=== PATIENT | female | born 1950 | race Asian ===

== ENCOUNTER → 2017-01-26 | Day surgery (SDC) | payer OTHER ==
[~2017-01-26] VITALS: Ht 157.5 cm; Wt 116.1 kg
[2017-01-26] VITALS (12 sets, daily range): BP systolic 119–147; BP diastolic 55–74
[~2017-01-26] MED LIST: AMLODIPINE BESYL5 MG ORAL; ASPIR 8181 MG ORAL; ATORVASTATIN CA40 MG ORAL; Akten 3.5% 1ml Btl ONE; BSS 15ml BTL ONE; BSS 500ml btl ONE; COUMADIN2.5 MG ORAL; Dexamethasone 4mg/ml vial ONE; Diclofenac Sod 0.1% Op Soln ONE; EPINEPHrine 1mg/1ml Amp ONE; FUROSEMIDE40 MG ORAL; Gatifloxacin Opth Solution 0.5% ONE; Hydromorphone 0.5mg/0.5ml inj IVP PRN; LEVEMIR FL100 UNIT/1 SUBQ; Lidocaine 1% MPF 10mg/ml 5ml ONE; Midazolam 2mg/2ml Inj ONE; NOVOLOG100 UNIT/3 SUBQ; NS Irrig 1000ml ONE; Phenylephrine 2.5% Op Soln ONE; Povidone-Iodine 5% opth solution ONE; Sodium Hyaluronate 14 mg/ml 0.85ml ONE; Sterile Water Irrig 1000ml IRRIG ONE; Tobradex Opth Susp 2.5ml ONE; Tropicamide 1% Opth Soln ONE; VELTASSA16.8 GM PO; VICTOZA 3-0.6 MG/0.1 SQ; VITAMIN D22000 UNIT PO; fentaNYL 100 mcg/2 mL IV ONE
[2017-01-26] MEDS: Diclofenac Sod 0.1% Op Soln LEFT EYE SCH ×3 (07:16→07:47)
[2017-01-26] MEDS: Tobradex Opth Susp 2.5ml LEFT EYE SCH ×3 (07:16→07:47)
[2017-01-26] MEDS: Tropicamide 1% Opth Soln LEFT EYE SCH ×3 (07:16→07:47)
[2017-01-26] MEDS: Akten 3.5% 1ml Btl LEFT EYE SCH ×3 (07:16→07:47)
[2017-01-26] MEDS: Phenylephrine 2.5% Op Soln LEFT EYE SCH ×3 (07:16→07:47)
[2017-01-26] MEDS: Gatifloxacin Opth Solution 0.5% LEFT EYE SCH ×3 (07:17→07:47)
--- NOTE | 2017-01-26 07:40 | Pre-Procedure Note/Attestation ---
Pre-Procedure Note/Attestation Complete Prior to Procedure Planned Procedure: left Procedure Narrative: cataract extraction with implant left eye Indications for Procedure Pre-Operative Diagnosis: cataract left eye Attestation I attest that I discussed the nature of the procedure; its benefits; risks and complications; and alternatives (and the risks and benefits of such alternatives ), prior to the procedure, with the patient (or the patient's legal billing customer service representative). I attest that, if there was a reasonable possibility of needing a blood transfusion, the patient (or the patient's legal billing customer service representative) was given the [facility] standardized written summary, pursuant to the [place] Blood Safety Act ([place] Health and Safety Code # 1645, as amended). I attest that I re-evaluated the patient just prior to the surgery and that there has been no change in the patient's H&P, except as documented below: SERVANDO MEHTA Jan 26, 2017 07:40
--- NOTE | 2017-01-26 08:38 | Anethesia Preoperative Eval ---
Anesthesia Pre-op PMH/ROS General Date of Evaluation: Jan 26, 2017 Time of Evaluation: 08:15 Anesthesiologist: FORREST ASA Score: ASA 3 Mallampati Score Class I : Soft palate, uvula, fauces, pillars visible Class II: Soft palate, uvula, fauces visible Class III: Soft palate, base of uvula visible Class IV: Only hard plate visible Mallampati Classification: Class II Surgeon: JANINE Diagnosis: CATARACT L EYE Surgical Procedure: REMOOVAL CATARACT L EYE Anesthesia History: none Family History: no anesthesia problems Allergies: Coded Allergies: No Known Allergies (Unverified , 01/25/17) Medications: see eMAR Past Medical History Cardiovascular: Reports: HTN Pulmonary: Denies: COPD, ELISSA, asthma, other Gastrointestinal/Genitourinary: Reports: other - CRD Neurologic/Psychiatric: Denies: CVA, TIA, dementia, depression/anxiety, other Endocrine: Reports: DM HEENT: Reports: cataract (L) Hematology/Immune: Denies: DVT, anemia, bleeding disorder, other Musculoskeletal/Integumentary: Denies: DDD, DJD, OA, RA, edema, other Other: obesity Anesthesia Pre-op Phys. Exam Physician Exam Last Vital Signs Date Time Temp Pulse Resp B/P Pulse Ox O2 Delivery O2 Flow Rate FiO2 01/26/17 07:24 97.8 90 20 147/74 100 Room Air Constitutional: NAD Neurologic: CN 2-12 intact Cardiovascular: RRR Respiratory: CTA Gastrointestinal: S/NT/ND Airway Exam Mallampati Score: Class II MO: full ROM: full Dentures: lower, upper Anesthesia Pre-op A/P Labs Chemistry Test 01/26/17 07:40 Potassium Level 5.0 mEQ/L (3.4-4.9) SRINIVASA PAZ M.D. Jan 26, 2017 08:38
--- NOTE | 2017-01-26 08:43 | Immediate Post-Op Evaluation ---
Immediate Post-Op Evalulation Immediate Post-Op Evalulation Procedure: CATARACT REMOVAL LENS IMPLANT L Date of Evaluation: Jan 26, 2017 IV Fluids: 450 Blood Products: 0 Estimated Blood Loss: 0 Urinary Output: 0 Blood Pressure Systolic: 124 Blood Pressure Diastolic: 68 Pulse Rate: 86 Respiratory Rate: 19 O2 Sat by Pulse Oximetry: 98 Temperature (Fahrenheit): 99 Pain Score (1-10): 0 Nausea: No Vomiting: No Patient Status: awake, patent, none Hydration Status: adequate Given Within 1 Hr of Incision: SRINIVASA Kumari M.D. Jan 26, 2017 08:43
--- NOTE | 2017-01-26 08:44 | 48 Hour Post Anesthesia Eval ---
Post Anesthesia Evaluation Procedure: CATARACT REMOVAL LENS IMPLANT L Date of Evaluation: Jan 26, 2017 Time of Evaluation: 12:00 Blood Pressure Systolic: 143 Pulse Rate: 78 Respiratory Rate: 20 Temperature (Fahrenheit): 98 O2 Sat by Pulse Oximetry: 98 Airway: patent Nausea: No Vomiting: No Pain Intensity: 1 Hydration Status: adequate Cardiopulmonary Status: WNL Mental Status/LOC: patient returned to baseline Post-Anesthesia Complications: 0 Follow-up care needed: ready to discharge SRINIVASA CLAYTON M.D. Jan 26, 2017 08:44
--- NOTE | 2017-01-26 08:55 | Brief Operative Note ---
Immediate Post Operative Note Operative Note Pre-op Diagnosis: cataract left eye Procedure: phacoemulsification of cataract with implant left eye Post-op Diagnosis: same as pre-op Surgeon: servando carmichael Vending Technician: none Anesthesiologist: ana meyer Anesthesia: MAC Specimen: none Complications: none Condition: stable Estimated Blood Loss: none Drains: none Implant(s) used?: Yes SERVANDO CARMICHAEL Jan 26, 2017 08:55
--- NOTE | 2017-01-26 23:09 | Operative Note - Dictated ---
DATE OF OPERATION: 01/26/2017 PREOPERATIVE DIAGNOSIS: Cataract, left eye. POSTOPERATIVE DIAGNOSIS: Cataract, left eye. PROCEDURE: Phacoemulsification of cataract, left eye with placement of posterior chamber intraocular lens. SURGEON: Lex Perez M.D. ([facility] [place]) WRAPPER SORTER: None. ANESTHESIA: MAC/topical. ANESTHESIOLOGIST: Dr. Holland Unger. INDICTION FOR PROCEDURE: Poor vision, left eye. DESCRIPTION OF FINDINGS: Nuclear sclerotic and cortical cataract, left eye. DESCRIPTION OF PROCEDURE: The patient received a topical anesthetic block consisting of 3.5% Akten eye drops. The eye was then prepped and draped in usual manner. A lid speculum was placed. An operating Zeiss microscope was positioned. The temporal corneal groove was made with the chika blade. A SuperSharp blade made a stab incision at the 6 o'clock position. A 0.1 mL of 1% nonpreserved intracameral lidocaine was injected. Healon was instilled into the anterior chamber and a 2.5/2.8 mm trapezoidal chika blade was used to complete the temporal corneal wound. A cystotome was used to create an anterior capsular flap. Utrata forceps were used to complete the capsulorrhexis. BSS on a cannula was used to hydrodissect the nucleus. The lens nucleus was phacoemulsified in a phaco-fracture technique. Remaining cortical material was removed with the I/A and the posterior capsule polished with the I/A on Cap vac. Healon was reinstilled into the capsular bag and anterior chamber, and an Valencia foldable one-piece posterior chamber intraocular lens, model ZCB00, power 17.5 diopter, serial number [id number] was placed in the injector. The lens was put into the capsular bag. The I/A tip was used to remove the Healon and position the lens. The wound edge was hydrated with BSS and a blunt-tipped cannula. The wound was checked and found to be watertight. The lid speculum was removed and a drop of TobraDex and Zymaxid was placed. A clear plastic shield was taped over the eye. The patient tolerated the procedure well and left the operating room in good condition. Lex Perez M.D. ([facility]) DR: KAYDEN JOB#: [id number] CC:
== END | disposition home or self-care (01) ==
LOC: SUR 06:25
DX: H25.12 Age-related nuclear cataract, left eye (principal); H25.012 Cortical age-related cataract, left eye; E11.22 Type 2 diabetes mellitus with diabetic chronic kidney disease; I12.9 Hypertensive chronic kidney disease with stage 1 through stage 4 chronic kidney disease, or unspecified chronic kidney disease; N18.4 Chronic kidney disease, stage 4 (severe); Z79.4 Long term (current) use of insulin; E11.42 Type 2 diabetes mellitus with diabetic polyneuropathy; E11.319 Type 2 diabetes mellitus with unspecified diabetic retinopathy without macular edema; E78.5 Hyperlipidemia, unspecified; E66.01 Morbid (severe) obesity due to excess calories; Z68.43 Body mass index [BMI] 50.0-59.9, adult; M54.40 Lumbago with sciatica, unspecified side; R60.9 Edema, unspecified; Z85.3 Personal history of malignant neoplasm of breast; Z86.010 Personal history of colon polyps
CPT/HCPCS: 36415; 66984; 82962; 84132; J0171; J1100; J2250; J2405; J3010; V2632; 94003; 94150

== ENCOUNTER 2017-03-02 06:03 | Day surgery (SDC) | payer OTHER ==
[~2017-03-02] VITALS: Ht 157.5 cm; Wt 113.4 kg
[2017-03-02] VITALS (9 sets, daily range): BP systolic 93–157; BP diastolic 47–76
[~2017-03-02 06:03] MED LIST changes: -Akten 3.5% 1ml Btl ONE; -BSS 15ml BTL ONE; -BSS 500ml btl ONE; -Dexamethasone 4mg/ml vial ONE; -Diclofenac Sod 0.1% Op Soln ONE; -EPINEPHrine 1mg/1ml Amp ONE; -Gatifloxacin Opth Solution 0.5% ONE; -Hydromorphone 0.5mg/0.5ml inj IVP PRN; -Lidocaine 1% MPF 10mg/ml 5ml ONE; -Midazolam 2mg/2ml Inj ONE; -NS Irrig 1000ml ONE; -Phenylephrine 2.5% Op Soln ONE; -Povidone-Iodine 5% opth solution ONE; -Sodium Hyaluronate 14 mg/ml 0.85ml ONE; -Sterile Water Irrig 1000ml IRRIG ONE; -Tobradex Opth Susp 2.5ml ONE; -Tropicamide 1% Opth Soln ONE; -fentaNYL 100 mcg/2 mL IV ONE
[2017-03-02] MEDS ORDERED: Gatifloxacin Opth Solution 0.5% ONE (06:23)
[2017-03-02] MEDS ORDERED: Phenylephrine 2.5% Op Soln ONE (06:23)
[2017-03-02] MEDS ORDERED: Tobradex Opth Susp 2.5ml ONE (06:23)
[2017-03-02] MEDS ORDERED: Diclofenac Sod 0.1% Op Soln ONE (06:23)
[2017-03-02] MEDS ORDERED: Akten 3.5% 1ml Btl ONE (06:23)
[2017-03-02] MEDS ORDERED: Tropicamide 1% Opth Soln ONE (06:24)
[2017-03-02] MEDS: Diclofenac Sod 0.1% Op Soln RIGHT EYE SCH ×3 (06:36→06:56)
[2017-03-02] MEDS: Akten 3.5% 1ml Btl RIGHT EYE SCH ×3 (06:36→06:56)
[2017-03-02] MEDS: Tobradex Opth Susp 2.5ml RIGHT EYE SCH ×3 (06:37→06:56)
[2017-03-02] MEDS: Tropicamide 1% Opth Soln RIGHT EYE SCH ×3 (06:37→06:56)
[2017-03-02] MEDS: Phenylephrine 2.5% Op Soln RIGHT EYE SCH ×3 (06:37→06:56)
[2017-03-02] MEDS: Gatifloxacin Opth Solution 0.5% RIGHT EYE SCH ×3 (06:38→06:56)
[2017-03-02] MEDS ORDERED: BSS 500ml btl ONE (07:11)
[2017-03-02] MEDS ORDERED: Povidone-Iodine 5% opth solution ONE (07:12)
[2017-03-02] MEDS ORDERED: Carbachol 0.01% Op Soln 1.5ml vial ONE (07:12)
[2017-03-02] MEDS ORDERED: Dexamethasone 4mg/ml vial ONE (07:12)
[2017-03-02] MEDS ORDERED: Lidocaine 1% MPF 10mg/ml 5ml ONE (07:12)
[2017-03-02] MEDS ORDERED: Sodium Hyaluronate 14 mg/ml 0.85ml ONE (07:13)
[2017-03-02] MEDS ORDERED: EPINEPHrine 1mg/1ml Amp ONE (07:13)
[2017-03-02] MEDS ORDERED: BSS 15ml BTL ONE (07:13)
[2017-03-02] MEDS ORDERED: Midazolam 2mg/2ml Inj ONE (08:30)
[2017-03-02] MEDS ORDERED: fentaNYL 100 mcg/2 mL IV ONE (08:30)
[2017-03-02] MEDS ORDERED: Sterile Water Irrig 1000ml IRRIG ONE (08:30)
[2017-03-02] MEDS ORDERED: LR 1000ml ONE (08:30)
--- NOTE | 2017-03-02 08:32 | Pre-Procedure Note/Attestation ---
Pre-Procedure Note/Attestation Complete Prior to Procedure Planned Procedure: right Procedure Narrative: cataract extraction with implant right eye Indications for Procedure Pre-Operative Diagnosis: cataract right eye Attestation I attest that I discussed the nature of the procedure; its benefits; risks and complications; and alternatives (and the risks and benefits of such alternatives ), prior to the procedure, with the patient (or the patient's legal manufacturer's service representative). I attest that, if there was a reasonable possibility of needing a blood transfusion, the patient (or the patient's legal manufacturer's service representative) was given the [facility] standardized written summary, pursuant to the [place] Blood Safety Act ([place] Health and Safety Code # 1645, as amended). I attest that I re-evaluated the patient just prior to the surgery and that there has been no change in the patient's H&P, except as documented below: SERVANDO MEHTA March 02, 2017 08:32
--- NOTE | 2017-03-02 08:55 | Anethesia Preoperative Eval ---
Anesthesia Pre-op PMH/ROS General Date of Evaluation: March 02, 2017 Time of Evaluation: 08:53 Anesthesiologist: yulissa ASA Score: ASA 3 Mallampati Score Class I : Soft palate, uvula, fauces, pillars visible Class II: Soft palate, uvula, fauces visible Class III: Soft palate, base of uvula visible Class IV: Only hard plate visible Mallampati Classification: Class III Surgeon: amol Diagnosis: cataract Surgical Procedure: cataract extraction with IOL Anesthesia History: none Family History: no anesthesia problems Allergies: Coded Allergies: No Known Allergies (Unverified , 01/25/17) Medications: see eMAR Past Medical History Cardiovascular: Reports: CAD, HTN Pulmonary: Reports: other - hx DVT on eliquis Gastrointestinal/Genitourinary: Reports: GERD Neurologic/Psychiatric: Denies: CVA, TIA, dementia, depression/anxiety, other Endocrine: Reports: DM HEENT: Reports: cataract (L) Hematology/Immune: Denies: DVT, anemia, bleeding disorder, other Musculoskeletal/Integumentary: Denies: DDD, DJD, OA, RA, edema, other Other: obesity - morbid PSxH Narrative: cataract extraction right eye 3 months ago Anesthesia Pre-op Phys. Exam Physician Exam Last Vital Signs Date Time Temp Pulse Resp B/P Pulse Ox O2 Delivery O2 Flow Rate FiO2 03/02/17 06:52 98.1 106 20 145/76 100 Room Air Constitutional: NAD Neurologic: CN 2-12 intact Cardiovascular: RRR Respiratory: CTA Gastrointestinal: S/NT/ND Airway Exam Mallampati Classification 3 Mallampati Score: Class III MO: full Neck: thick ROM: full Dentures: no lower, no upper Anesthesia Pre-op A/P Labs Accucheck fbs = 159 Studies Pre-op Studies: EKG - sr Risk Assessment & Plan Plan: mac Status Change Before Surgery: No Pre-Antibiotics Drug: none MATT BROWN CRNA March 02, 2017 08:55
--- NOTE | 2017-03-02 09:05 | Brief Operative Note ---
Immediate Post Operative Note Operative Note Pre-op Diagnosis: cataract right eye Procedure: phacoemulsification of cataract with implant right eye Post-op Diagnosis: same as pre-op Surgeon: servando carmichael Tool Specialist: none Anesthesiologist: ruddy duenas crna Anesthesia: MAC Specimen: none Complications: none Condition: stable Estimated Blood Loss: none Drains: none Implant(s) used?: Yes SERVANDO CARMICHAEL March 02, 2017 09:05
--- NOTE | 2017-03-02 10:09 | 48 Hour Post Anesthesia Eval ---
Post Anesthesia Evaluation Procedure: cataract extraction Date of Evaluation: March 02, 2017 Time of Evaluation: 10:08 Blood Pressure Systolic: 134 0: 75 Pulse Rate: 70 Respiratory Rate: 14 O2 Sat by Pulse Oximetry: 100 Airway: patent Nausea: No Vomiting: No Hydration Status: adequate Mental Status/LOC: patient returned to baseline Post-Anesthesia Complications: none Follow-up care needed: N/A MATT BROWN CRNA March 02, 2017 10:09
--- NOTE | 2017-03-02 10:11 | Immediate Post-Op Evaluation ---
Immediate Post-Op Evalulation Immediate Post-Op Evalulation Procedure: cataract extraction Date of Evaluation: March 02, 2017 Time of Evaluation: 09:05 IV Fluids: 200 Blood Pressure Systolic: 100 Blood Pressure Diastolic: 50 Pulse Rate: 88 Respiratory Rate: 14 O2 Sat by Pulse Oximetry: 100 Nausea: No Vomiting: No Complications none Patient Status: awake, reacts, patent Hydration Status: adequate Drug: none MATT BROWN CRNA March 02, 2017 10:11
--- NOTE | 2017-03-02 11:40 | Operative Note - Dictated ---
DATE OF OPERATION: 03/02/2017 PREOPERATIVE DIAGNOSIS: Cataract, right eye. POSTOPERATIVE DIAGNOSIS: Cataract, right eye. PROCEDURE: Phacoemulsification of the cataract, right eye, with placement of posterior chamber intraocular lens. SURGEON: Lex Perez M.D. ([facility] [place]) VARNISH MELTER: None. ANESTHESIA: MAC/topical. ANESTHESIOLOGIST: Laura Rajan C.R.N.A. INDICATION FOR PROCEDURE: Poor vision, right eye. DESCRIPTION OF FINDINGS: Nuclear sclerotic and cortical cataract, right eye. DESCRIPTION OF PROCEDURE: The patient received a topical anesthetic block consisting of 3.5% Akten eye drops. The eye was then prepped and draped in the usual manner. A lid speculum was placed and an operating Zeiss microscope was positioned. A temporal corneal groove was then made with the chika blade. A SuperSharp blade made a stab incision at the 12 o'clock position. A 0.1 mL of 1% nonpreserved intracameral lidocaine was injected. Healon was instilled into the anterior chamber and a 2.5/2.8 mm trapezoidal chika blade was used to complete the temporal corneal wound. A cystotome was used to create an anterior capsular flap. Utrata forceps were used to complete the capsulorrhexis. BSS on a cannula was used to hydrodissect the nucleus. The lens nucleus was phacoemulsified in a phaco-fracture technique. Remaining cortical material was removed with the I/A and the posterior capsule polished with the I/A on Cap vac. Healon was reinstilled in the capsular bag and anterior chamber, and an Valencia foldable one-piece posterior chamber intraocular lens, model ZCB00,, power 18.5 diopter, serial #[id number] was placed in the injector. The lens was put into the capsular bag. The I/A tip was used to remove the Healon and position the lens. The wound edge was hydrated with BSS and a blunt-tipped cannula. The wound was checked and found to be watertight. The lid speculum was removed, and a drop of TobraDex and Zymaxid was placed. A clear plastic shield was taped over the eye. The patient tolerated the procedure well and left the operating room in good position. Lex Perez M.D. ([facility]) DR: Allan JOB#: [id number] CC: MTDD
== END 2017-03-02 10:30 | disposition home or self-care (01) ==
LOC: SUR 06:03
DX: H25.11 Age-related nuclear cataract, right eye (principal); H25.011 Cortical age-related cataract, right eye; E11.319 Type 2 diabetes mellitus with unspecified diabetic retinopathy without macular edema; Z79.4 Long term (current) use of insulin; I12.9 Hypertensive chronic kidney disease with stage 1 through stage 4 chronic kidney disease, or unspecified chronic kidney disease; N18.9 Chronic kidney disease, unspecified; E78.5 Hyperlipidemia, unspecified; I50.30 Unspecified diastolic (congestive) heart failure; I25.10 Atherosclerotic heart disease of native coronary artery without angina pectoris; I25.2 Old myocardial infarction; K21.9 Gastro-esophageal reflux disease without esophagitis; E66.01 Morbid (severe) obesity due to excess calories; Z68.42 Body mass index [BMI] 45.0-49.9, adult; Z86.718 Personal history of other venous thrombosis and embolism; Z85.3 Personal history of malignant neoplasm of breast; Z86.010 Personal history of colon polyps
CPT/HCPCS: 66984; 82962; J0171; J1100; J2250; J3010; J7120; V2632; 94003; 94150